=== PATIENT | female | born 1980 ===

== ENCOUNTER 2016-11-12 16:53 | Emergency (ER) | payer OTHER ==
[2016-11-12 17:17] VITALS: BP 116/76
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
== END 2016-11-12 17:36 | disposition home or self-care (01) ==
LOC: UCEAST 16:53
DX: T22.411A Corrosion of unspecified degree of right forearm, initial encounter (principal); T23.422A Corrosion of unspecified degree of single left finger (nail) except thumb, initial encounter; Z87.891 Personal history of nicotine dependence; Y92.9 Unspecified place or not applicable
CPT/HCPCS: 99211; G0463